=== PATIENT | male | born 1965 | race Caucasian/White ===

== ENCOUNTER → 2019-05-30 | Outpatient (CLI) | payer OTHER, MEDICARE | END | disposition home or self-care (01) | LOC: OIH 13:18 | PROVIDERS: ATTEND Internal Medicine | DX: M47.812 Spondylosis without myelopathy or radiculopathy, cervical region (principal); M48.07 Spinal stenosis, lumbosacral region; M06.4 Inflammatory polyarthropathy | CPT/HCPCS: 72040; 72100; 72202 ==